=== PATIENT | female | born 1980 | race Caucasian/White ===

== ENCOUNTER 2017-08-15 22:05 | Emergency (ER) | payer MEDICAID ==
[~2017-08-15] VITALS: Ht 152.4 cm; Wt 51.0 kg
[~2017-08-15 22:05] MED LIST: CLIN-80 PO
[2017-08-15] MEDS ORDERED: KETO5DRO3 OT (22:26)
[2017-08-15] MEDS ORDERED: GENT5DRO4 EACHEYE (22:28)
[2017-08-15 22:46] VITALS: BP 92/43
== END 2017-08-15 22:48 | disposition home or self-care (01) ==
LOC: ER 22:05
DX: H10.32 Unspecified acute conjunctivitis, left eye (principal); Z79.2 Long term (current) use of antibiotics
CPT/HCPCS: 99283

== ENCOUNTER 2020-01-27 10:16 | Emergency (ER) | payer MEDICAID ==
[~2020-01-27] VITALS: Ht 162.6 cm; Wt 52.2 kg
[~2020-01-27 10:16] MED LIST changes: -CLIN-80 PO; +CLIN-97 PO; +GENT5DRO4 EACHEYE; +KETO5DRO3 OT
[2020-01-27 10:33] VITALS: BP 118/69
== END 2020-01-27 11:41 | disposition home or self-care (01) ==
LOC: ER 10:16
DX: S93.491A Sprain of other ligament of right ankle, initial encounter (principal); X50.1XXA Overexertion from prolonged static or awkward postures, initial encounter; Y93.89 Activity, other specified; Y92.89 Other specified places as the place of occurrence of the external cause; Y99.8 Other external cause status
CPT/HCPCS: 73610; 99283

== ENCOUNTER 2022-04-27 07:57 | Day surgery (SDC) | payer MEDICAID ==
[2022-04-21 16:04] LABS: CLARITY,URINE CLEAR (Clear); COLOR,URINE YELLOW (Yellow); GLUCOSE, URINE NEGATIVE (Neg); KETONES,URINE NEGATIVE (Neg); LEUKOCYTE ESTERASE ,URINE NEGATIVE (Neg); NITRITES, URINE NEGATIVE (Neg); OCCULT BLOOD,URINE NEGATIVE (Neg); PROTEIN,URINE NEGATIVE (Neg); UROBILINOGEN,URINE 0.2 E.U/dL (0.2-1.0)
[2022-04-21 16:15] LABS: BASOPHILS # (AUTO) 0.1 X10'3 (0-0.2); EOSINOPHILS # (AUTO) 0.1 X10'3 (0-0.9); EOSINOPHILS % (AUTO) 2.1 % (0-6); LYMPHOCYTES # (AUTO) 1.9 X10'3 (1.1-4.8); LYMPHOCYTES % (AUTO) 35.9 % (21-51); MEAN CORPUSCULAR HEMOGLOBIN 30.5 PG (27.0-31.0); MEAN CORPUSCULAR HGB CONC 34.6 g/dL (33.0-36.5); MEAN CORPUSCULAR VOLUME 87.9 FL (78-98); MEAN PLATELET VOLUME 6.8 FL (7.4-10.4); MONOCYTES # (AUTO) 0.4 X10'3 (0-0.9); MONOCYTES % (AUTO) 7.8 % (2-12); NEUTROPHILS # (AUTO) 2.9 X10'3 (1.8-7.7); NEUTROPHILS % (AUTO) 53.2 % (42-75); PRE OP HEMATOCRIT 39.3 % (35.0-45.0); PRE OP HEMOGLOBIN 13.6 g/dL (12.0-16.0); PRE OP PLATELET COUNT 202 X10'3 (140-440); RED BLOOD COUNT 4.47 X10'6 (4.20-5.60)
[2022-04-21 16:16] LABS: UA COLLECTION TYPE NON-SPECIFIED
[2022-04-21 16:26] LABS: ALBUMIN 3.9 G/DL (3.4-5.0); ALBUMIN/GLOBULIN RATIO 1.2 (1.1-1.5); ALKALINE PHOSPHATASE 65 IU/L (46-116); BLOOD UREA NITROGEN 14 MG/DL (7-18); BUN/CREATININE RATIO 17.5 (6.6-38.0); CALCIUM 8.7 MG/DL (8.5-10.1); CHLORIDE 103 MMOL/L (99-107); PRE OP ALT 20 U/L (30-65); PRE OP ANION GAP 5 (8-16); PRE OP AST 28 U/L (10-37); PRE OP BILIRUB, TOTAL 0.4 MG/DL (0.0-1.0); PRE OP GLUCOSE 78 MG/DL (70-104); PRE OP POTASSIUM 4.2 MMOL/L (3.4-5.1); PRE OP SODIUM 138 MMOL/L (135-145); TOTAL CARBON DIOXIDE 30.3 MMOL/L (24-32); TOTAL PROTEIN 7.2 G/DL (6.4-8.2); eGFR 79 ML/MIN
[2022-04-27] VITALS (19 sets, daily range): BP systolic 98–129; BP diastolic 60–85
[~2022-04-27] VITALS: Ht 152.4 cm; Wt 52.5 kg
[~2022-04-27 07:57] MED LIST changes: -CLIN-97 PO; -GENT5DRO4 EACHEYE; -KETO5DRO3 OT; +NO HOME MEDS; +ceFAZolin inj. 2,000 MG in dextrose 5%-water 100 ML IV ONE; +famotidine 20mg tablet PO ONE; +ringers solution, lacted 1,000 ML IV SCH
[2022-04-27] MEDS ORDERED: BUPIVAcaine/PF 2.5 mg/ml (0.25%) 30ml vial ONE (11:24)
[2022-04-27] MEDS ORDERED: fentaNYL/PF 50MCG/1 ML 2ML syringe ONE ×2 (11:53→12:11)
[2022-04-27] MEDS ORDERED: midazolam 1 mg/ML 2ml injection ONE (11:54)
[2022-04-27] MEDS ORDERED: propofol inj 20 ML IV ONE (12:03)
[2022-04-27] MEDS ORDERED: rocuronium 10mg/ml inj IV ONE (12:03)
[2022-04-27] MEDS ORDERED: BUPIVACAINE liposomal/PF 13.3 MG/ML vial IM ONE (12:03)
[2022-04-27] MEDS ORDERED: BUPIVAcaine/PF 2.5mg/ml (0.25%) 10ml vial ONE (12:03)
[2022-04-27] MEDS ORDERED: morphine 4 MG/ML inj SYRINge IV PRN (12:25)
[2022-04-27] MEDS ORDERED: proCHLORperazine 10 MG/2 ml inj IV PRN (12:25)
[2022-04-27] MEDS ORDERED: ringers solution, lacted 1,000 ML IV SCH (12:25)
[2022-04-27] MEDS ORDERED: morphine 2 MG/ML inj. syringe IV PRN (12:25)
[2022-04-27] MEDS ORDERED: ondansetron/PF 4mg/2ml inj IV PRN (12:25)
[2022-04-27] MEDS ORDERED: meperidine/PF 25mg/ml syringe IV PRN ×3 (12:25)
[2022-04-27] MEDS ORDERED: BUPIVAcaine/PF 2.5 mg/ml (0.25%) 30ml vial IJ ONE (12:34)
[2022-04-27] MEDS ORDERED: ondansetron/PF 4mg/2ml inj ONE (12:51)
[2022-04-27] MEDS ORDERED: glycopyrrolate 0.2mg/ml inj ONE (12:52)
[2022-04-27] MEDS ORDERED: neostigmine methylsulfate 1 MG/ML 10ml vial ONE (12:52)
--- NOTE | 2022-04-27 13:21 | NUR ---
Received from OR via [facility], accompanied by Anesthesiologist NAHID and report given by Anesthesiolgist. PATIENT WITH 20G PIV IN LEFT UE RUNING LR AT 100. VSS. LAP SITES X2 ABDOMEN ARE PRESENT. PATIENT VSS. DENIES PAIN AT THIS TIME. PATIENT WITH CASEY RENEE FOR PATIENT COMFORT AND SHIVERS. Addendum: 04/27/22 at 1335 by Derek Banerjee RN, RN Amended: Links added.
--- NOTE | 2022-04-27 15:51 | NUR ---
ALL DISCHARGE CRITERIA HAS BEEN MET. VSS, PAIN AT A TOLERABLE LEVEL AND ABLE TO SAFELY AMBULATE AND TRANSFER SELF. NAUSEA RESOLVED. IV TAKEN OUT WITHOUT ANY COMPLICATIONS. ALL DISCHARGE INSTRUCTIONS COVERED WITH PATIENT AND ALL QUESTIONS ANSWERED. PATIENT TAKEN OUT VIA WHEELCHAIR TO PERSONAL VEHICLE WHERE FAMILY/FRIEND DROVE PATIENT HOME. Addendum: 04/27/22 at 1610 by Cathy Lee RN Amended: Links added.
== END 2022-04-27 15:51 | disposition home or self-care (01) ==
LOC: PAS 07:57
PROVIDERS: ATTEND Surgery
DX: K42.9 Umbilical hernia without obstruction or gangrene (principal); Z79.899 Other long term (current) drug therapy; Z98.890 Other specified postprocedural states; Z87.891 Personal history of nicotine dependence; G89.18 Other acute postprocedural pain
CPT/HCPCS: 36415; 49652; 64488; 80053; 81003; 82948; 85025; C1713; C1781; C9290; J0690; J2250; J2405; J2704; J2710; J3010; J3490; J7030; J7060; J7120; Z7506; Z7508; Z7512; A4618; A7000